=== PATIENT | male | born 1940 | race Caucasian/White ===

== ENCOUNTER → 2016-10-18 | Outpatient (CLI) | payer MEDICARE | END | disposition home or self-care (01) | LOC: LABPAT 10:19 | PROVIDERS: ATTEND Orthopaedic Surgery | DX: Z01.812 Encounter for preprocedural laboratory examination (principal) | CPT/HCPCS: 86850; 86900; 86901; 87070 ==

== ENCOUNTER 2016-10-29 08:46 | Inpatient (IN) | payer MEDICARE ==
--- NOTE | 2016-10-28 12:41 | HP ---
CHIEF COMPLAINT: Right hip pain. HISTORY OF PRESENT ILLNESS: The patient is a 76-year-old male who presents with progressive right hip pain, worsening over the past couple of months. He notes thigh pain and stiffness. He has been limping. He has tried medications with only partial temporary relief. PAST MEDICAL HISTORY: Significant for atrial fibrillation, type 2 diabetes, hypercholesterolemia and prostate cancer. PAST SURGICAL HISTORY: Significant for previous shoulder surgery, previous prostate surgery, bladder surgery with urostomy, colon surgery with colostomy, cholecystectomy. CURRENT MEDICATIONS: Aspirin, atorvastatin, lisinopril, metformin, metoprolol, warfarin. He notes sensitivity to Norflex, however, no yoav drug allergies. FAMILY HISTORY: Significant for heart disease and cancer. SOCIAL HISTORY: Significant for previous tobacco use, however, he quit in 1966. Sixteen point review of systems otherwise reviewed and is noncontributory. On examination the patient is approximately 6 feet tall, 205 pounds, of mesomorphic habitus. HEENT: Nonfocal. NECK: Supple. He is nontender about the lumbar spine. Passive motion of the right hip. Flexion 75 degrees. External rotation of the hip flexed 60 degrees, internal rotation 10 degrees with pain. Clinically he is 0.5 cm short on the right lower extremity compared to the left. He walks with an antalgic gait pattern. He has positive Trendelenburg gait. His distal neurovascular exam appears intact in the right lower extremity. Previous AP and lateral views of the right hip in addition to AP of the pelvis shows severe right hip osteoarthrosis. IMPRESSION: 1. Right hip severe osteoarthrosis. 2. History of prostate cancer with urostomy/colostomy. 3. Atrial fibrillation on chronic anticoagulation. RECOMMENDATIONS: I talked to the patient at length regarding his treatment options. At this point he is quite symptomatic and opts to proceed with surgery. We will plan to proceed with right total hip arthroplasty. Risks and benefits were discussed at length in layman's terms. We will reinstitute his Coumadin therapy postoperatively. The patient underwent preoperative cardiac evaluation by Dr. Hurley. [facility]ENTER[facility]ast[facility]
[~2016-10-29 08:46] MED LIST: ACETAMINOPHEN TAB 500 MG TAB PO ONE; DEXAMETHASONE SOD PHOSPHATE 10 MG/ML 1 ML VIAL IV ONE; HYDROmorphone 1 MG/ML 1 ML SYRINGE IVP PRN; MELOXICAM 7.5 MG TAB PO ONE; MIDAZOLAM 2 MG/2 ML VIAL IV PRN; ONDANSETRON 4 MG/2 ML VIAL IVP ONE; TRANEXAMIC ACID 1,000 MG in SODIUM CHLORIDE 0.9% 100 ML IVPB ONE; ceFAZolin 2 GM in SODIUM CHLORIDE 0.9% 100 ML IVPB ONE
[2016-10-29] MEDS: LACTATED RINGERS 1,000 ML IV SCH (09:35)
[2016-10-29] MEDS ORDERED: LIDOCAINE 1% 20 ML VIAL (10MG/ML) FOR IV START INTRADERMA ONE (09:43)
[2016-10-29 09:47] LABS: Glucose,Whole Blood 86 mg/dL (75-99)
[2016-10-29 10:01] LABS: INR 1.2 (<1.2); Partial Thromboplastin Time 24.9 sec (22.0-30.0); Prothrombin Time 11.7 sec (9.0-12.0)
[2016-10-29] MEDS ORDERED: MIDAZOLAM 2 MG/2 ML VIAL ONE (10:55)
[2016-10-29] MEDS ORDERED: ePHEDrine 50 MG/ML 1 ML AMP ONE (10:55)
[2016-10-29] MEDS ORDERED: SODIUM CHLORIDE 0.9% IRRIG 1,000 ML BTL IRRIGATION ONE (10:55)
[2016-10-29] MEDS ORDERED: HEPARIN SODIUM,PORCINE 10,000 UNIT/ML 1 ML VIAL ONE (10:55)
[2016-10-29] MEDS ORDERED: fentaNYL (PF) 50 MCG/ML 2 ML AMP ONE (10:55)
[2016-10-29] MEDS ORDERED: LACTATED RINGERS 1,000 ML IV ONE (11:50)
[2016-10-29] MEDS ORDERED: HYDROmorphone 1 MG/ML 1 ML SYRINGE IVP PRN ×2 (12:51)
[2016-10-29] MEDS ORDERED: ONDANSETRON 4 MG/2 ML VIAL IVP PRN (12:51)
[2016-10-29] MEDS ORDERED: HYDROcodone/APAP 5-325MG 1 EACH TAB PO PRN (12:51)
[2016-10-29] MEDS ORDERED: NALOXONE 0.4 MG/ML 1 ML VIAL IV PRN ×2 (12:51→13:39)
[2016-10-29] MEDS ORDERED: MAGNESIUM HYDROXIDE 2,400 MG/10 ML CUP PO PRN (12:51)
--- NOTE | 2016-10-29 13:24 | P.OP ---
Date of Procedure: 10/29/16 Preoperative Diagnosis: Severe right hip osteoarthrosis Postoperative Diagnosis: Same Procedure(s) Performed: Right total hip [id number] Implants: Depuy Corail size 12 high offset collared femoral stem, 36 mm +5 cobalt chrome femoral head, 62 mm press-fit acetabular shell with neutral polyethylene liner. Anesthesia: spinal Surgeon: Russel Villanueva Car Distributor #1: Alberto Tobias Estimated Blood Loss (ml): 200 Pathology: other (Femoral head) Condition: stable Disposition: PACU Indications for Procedure: The patient's a 76-year-old male who presents with progressive right hip pain secondary to osteoarthrosis despite conservative measures. He also previously had radiation treatment for prostate cancer with a subsequent urostomy. A discussion of the risks and benefits of operative intervention versus continued conservative measures was made with the patient. He opted to proceed with surgery. Operative risks to include infection, neurovascular injury, development of blood clots, possible component loosening, possible leg length discrepancy, possible dislocation need for subsequent procedures was discussed. Informed consent was obtained. Operative Findings: As below Description of Procedure: The patient was brought to the operating room, and after induction of spinal anesthesia was was placed into lateral decubitus position. The pelvis was stabilized perpendicular to the floor with a pegboard. Bony prominences were appropriately padded. The right lower extremity was prepped and draped in a normal fashion. A 15 cm incision was then made centered over the greater trochanter extending distally in line with the femoral shaft and proximally to level the ASIS. The skin and subcutaneous tissues were divided sharply. Electrocautery was used for hemostasis. The fascia ivonne and gluteus maged fascia was split in line with skin incision. The muscle fibers were bluntly dissected proximally. The anterior and posterior margins of the gluteus medius muscles identified in the anterior two thirds detached from the greater trochanter with electrocautery. The gluteus minimus tendon was identified and detached in a similar fashion. A wide capsulotomy was performed. The hip was gently dislocated. The neck cut was then made at a 45 to the shaft approximately 1-1/2 cm above the level lesser trochanter. The head was then extracted. The acetabulum was inspected. Retractors were placed anterior and posteriorly. The remaining capsular labral tissue was sharply debrided clearly defining the acetabular margins. I began reaming with a 57 mm reamer taking care to initially medialize, then reaming at 45 valgus and 20 of anteversion. Sequential reaming was performed up to 61 mm. A trial to 2 mm acetabular shell was inserted in the same orientation and was fully seated. There was good rim fit and stability. The trial component was then removed. The final component was inserted in 45 of abduction and 20 of anteversion. Again there was good rim fit and stability. I did use an osteotome to remove peripheral osteophytes anterior and posterior along the acetabulum. A neutral polyethylene liner was gently impacted. Care was taken to avoid any soft tissue interposition. Pulsatile lavage was utilized. Attention was then paid towards preparing the proximal femur. A box chisel was used to open the metaphyseal region. A canal finder was used to find the femoral canal. Sequential broaching was performed with the leg perpendicular to the floor in 15 of anteversion. I went up to a size 12 broach. A calcar mill was used to fashion the medial calcar. A high offset neck along with a 36 mm +5 head was placed. The hip was gently reduced. I was able to obtain full flexion and extension with good stability with internal and external rotation. I felt there was adequate yarsanism of soft tissue tension. The hip was gently dislocated. The trial components were then removed. The final femoral stem was inserted in 15 of anteversion with the leg perpendicular to the floor. There was good rotational stability. The 36 mm +5 cobalt chrome femoral head was gently impacted. The hip was gently reduced. Again it was taken through range of motion felt to be stable in flexion and extension with internal and external rotation. Again I felt there was adequate yarsanism of soft tissue tension. Pulsatile lavage was again utilized. With the hip in abduction, the gluteus minimus and medius tendons reattached the greater trochanter with #2 Ethibond suture. The fascia ivonne and gluteus maged fascia was closed with running #2 Ethibond suture. He had minimal drainage is this point, therefore I did not place a deep drain. The subcutaneous tissues reapproximated with interrupted 2-0 Vicryl sutures. The skin was reapproximated with 3-0 subcuticular strata fix suture. Skin tape and adhesive was applied. A sterile dressing was applied. The patient was awoken from sedation and transferred to recovery room in good condition. Blood loss was estimated 200 mL. No complications were incurred. Sponge and needle counts were correct at the end the case.
[2016-10-29] MEDS ORDERED: NALBUPHINE 10 MG/ML AMPUL IV PRN (13:39)
[2016-10-29] MEDS ORDERED: diphenhydrAMINE 50 MG/ML 1 ML VIAL IVP PRN (13:39)
[2016-10-29] MEDS ORDERED: MORPHINE SULFATE 4 MG/ML SYRINGE IVP PRN (13:39)
--- NOTE | 2016-10-29 13:50 | XR ---
Fluoroscopy EXAMINATION TYPE: XR Hip Limited RT DATE OF EXAM: 10/29/2016 COMPARISON: NONE HISTORY: Status post hip replacement TECHNIQUE: Single AP right hip FINDINGS: Right femoral prosthesis is present. No acute fractures are evident. Acetabular component i s present. Surgical clips are within the pelvis. Vascular calcifications present. Postsurgical changes at the ri ght hip is present IMPRESSION: 1. No acute fractures post hip replacement
[2016-10-29 14:48] VITALS: BMI 27.2
[2016-10-29 16:23] LABS: Glucose,Whole Blood 125 mg/dL (75-99)
[2016-10-29] MEDS: traMADol 50 MG TAB PO SCH (17:54)
[2016-10-29] MEDS ORDERED: WARFARIN 2.5 MG TAB PO SCH (18:00)
[2016-10-29] MEDS ORDERED: traMADol 50 MG TAB PO SCH (18:00)
[2016-10-29] MEDS: ceFAZolin 2 GM in SODIUM CHLORIDE 0.9% 100 ML IVPB SCH (18:07)
[2016-10-29] MEDS: LISINOPRIL 5 MG TAB PO SCH (19:59)
[2016-10-29] MEDS: metFORMIN 500 MG TAB PO SCH (19:59)
[2016-10-29] MEDS: SENNOSIDES-DOCUSATE SODIUM 1 EACH TAB PO SCH (19:59)
[2016-10-29] MEDS: PROPAFENONE 150 MG TAB PO SCH (19:59)
[2016-10-29] MEDS: ATORVASTATIN 40 MG TAB PO SCH (19:59)
[2016-10-29 20:24] LABS: Glucose,Whole Blood 239 mg/dL (75-99)
[2016-10-29] MEDS: INSULIN LISPRO (humaLOG) 300 UNIT/3 ML VIAL SQ SCH (21:11)
[2016-10-30] MEDS: traMADol 50 MG TAB PO SCH ×5 (01:45→23:51)
[2016-10-30] MEDS: ceFAZolin 2 GM in SODIUM CHLORIDE 0.9% 100 ML IVPB SCH (03:12)
[2016-10-30] MEDS: LACTATED RINGERS 1,000 ML IV SCH (05:53)
[2016-10-30 07:19] LABS: Glucose,Whole Blood 125 mg/dL (75-99)
[2016-10-30] MEDS: INSULIN LISPRO (humaLOG) 300 UNIT/3 ML VIAL SQ SCH ×4 (07:47→21:08)
[2016-10-30 07:59] LABS: INR 1.2 (<1.2); Prothrombin Time 11.5 sec (9.0-12.0)
[2016-10-30 08:00] LABS: Basophils % (A) 0 %; CH 30.4; CHCM 32.1; Eosinophils % (A) 0 %; HCT 33.4 % (39.0-53.0); HDW 2.35; HGB 10.7 gm/dL (13.0-17.5); Luc # (Auto) 0.13; Luc % (Auto) 1; Lymphocytes # (A) 0.9 k/uL (1.0-4.8); Lymphocytes % (A) 9 %; MCH 30.4 pg (25.0-35.0); MCHC 31.9 g/dL (31.0-37.0); MCV 95.3 fL (80.0-100.0); Mean Platelet Volume 7.7; Monocytes # (A) 0.7 k/uL (0-1.0); Monocytes % (A) 7 %; Neutrophils # (A) 8.5 k/uL (1.3-7.7); Neutrophils % (A) 82 %; RBC 3.51 m/uL (4.30-5.90); RDW 13.3 % (11.5-15.5); WBC 10.3 k/uL (3.8-10.6); WBC (Perox) 11.11
--- NOTE | 2016-10-30 08:01 | CONS ---
DATE OF CONSULTATION: 10/29/16 REASON FOR CONSULTATION: Medical management requested by Dr. Villanueva. CONSULTATION: This is a very pleasant 76-year-old patient who has undergone a right total hip arthroplasty. Post-surgery patient has walked around the bed. No chest pain, short of breath, nausea or vomiting. Chronic stable medical condition includes atrial fibrillation, coronary artery disease, diabetes, hyperlipidemia, chronic kidney disease. Patient has a colostomy and a urostomy following metastatic prostatic cancer surgery. is at the bedside. Pain is controlled. REVIEW OF SYSTEMS: CONSTITUTIONAL: None. HEENT: None. RESPIRATORY: None. CARDIOVASCULAR: None. GASTROINTESTINAL: As above. GENITOURINARY: None. MUSCULOSKELETAL: Pain in the joints. DERMATOLOGICAL: None. HEMATOLOGY: None. LYMPHATIC: None. PSYCHIATRY: None. NEUROLOGICAL: None. Past history of atrial fibrillation, coronary artery disease, diabetes, hyperlipidemia, chronic kidney disease stage II, prostate cancer. PAST SURGICAL HISTORY: Bladder surgery, bowel resection, cholecystectomy, coronary artery bypass, prostate surgery, left knee arthroscopy, colostomy, urostomy 12 years ago. SOCIAL HISTORY: Patient smoked for 4 years, way back. Does not drink alcohol. 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 Family history of cancer, type unknown. HOME MEDICATIONS: 1. Glucophage 500 mg p.o. b.i.d. 2. Coumadin 2.5 mg Friday, Friday, and 5 mg on Friday and Friday. 3. Rythmol 150 mg p.o. b.i.d. 4. Metoprolol 25 mg in the morning. 5. Zestril 5 mg p.o. q.h.s. 6. [place] 5 one tablet q.6 p.r.n. 7. Fenofibrate 160 mg p.o. daily. 8. Cranberry 200 mg p.o. daily. 9. Vitamin D3 two thousand units p.o. daily. 10. Lipitor 40 mg q.h.s. 11. Aspirin 162.5 p.o. daily. Allergies to NORFLEX. On examination, temperature 96.9, pulse 58, respirations 16, blood pressure 104/ 57, pulse ox 96% on room air. GENERAL APPEARANCE: Average build, sitting up on the edge of the bed comfortable. EYES: Pupils equal, conjunctivae normal. HEENT: Oral cavity normal. NECK: JVD not raised, mass not palpable. Respiratory effort normal. Lungs are clear. CARDIOVASCULAR: First and second sounds, no edema. ABDOMEN: Soft, nontender. Liver and spleen not palpable. LYMPHATICS: No lymph node palpable in neck or axillae. PSYCHIATRY: Alert and oriented x3 Mood and affect normal. NEUROLOGICAL: Pupils are equal, grossly intact. Power and sensation grossly intact. MUSCULOSKELETAL: Evidence of osteoarthritis, especially in the hands and knees. Right hip dressing was replaced. INVESTIGATIONS: Accu-Checks, 86, 125. ASSESSMENT: 1. Right total hip arthroplasty. 2. History of atrial fibrillation. 3. Coronary artery disease with prior history of bypass. 4. Diabetes mellitus type 2 on oral hypoglycemia. 5. Hyperlipidemia. 6. History of colostomy and urostomy from prostate cancer. PLAN: Home medications will be resumed. Will resume patient's Coumadin, will follow care with Dr. Villanueva. Care was discussed with the patient and the . Pain is controlled. Thank you, Dr. Villanueva. [facility]
[2016-10-30] MEDS: FENOFIBRATE 160 MG TAB PO SCH (08:17)
[2016-10-30] MEDS: PROPAFENONE 150 MG TAB PO SCH ×2 (08:17→21:07)
[2016-10-30] MEDS: metFORMIN 500 MG TAB PO SCH ×2 (08:17→21:07)
[2016-10-30] MEDS: FAMOTIDINE 20 MG TAB PO SCH (08:18)
[2016-10-30] MEDS: METOPROLOL TARTRATE 25 MG TAB PO SCH (08:18)
--- NOTE | 2016-10-30 10:27 | P.PN ---
Progress Note - Text Postop day 1 from right hip arthroplasty under spinal anesthesia with intrathecal morphine given for postop pain management. Patient is doing well. Pain is well controlled. On visual analog scale 4/10 No itching present No nausea or vomiting reported. No Headache or weakness and numbness in the legs. No complications from spinal anesthesia.
--- NOTE | 2016-10-30 11:26 | P.PN ---
Subjective Principal diagnosis: Status post right total hip arthroplasty Patient seen today resting in his hospital chair, he appears comfortable. He is ambulating well with PT. He denies any chest pain, shortness of breath, fever or chills, abdominal discomfort. Objective - Vital Signs Vital signs: Vital Signs Temp 98.0 F 10/30/16 07:00 Pulse 96 10/30/16 07:00 Resp 16 10/30/16 07:00 BP 106/59 10/30/16 07:00 Pulse Ox 97 10/30/16 07:00 Intake & Output 10/29/16 10/30/16 10/30/16 18:59 06:59 18:59 Intake Total 2230 980 350 Output Total 475 1000 Balance 1755 -20 350 Weight 91.172 kg Intake: IV 1750 Intake, IV Titration 500 Amount Lactated Ringers 1,000 ml 400 @ 40 mls/hr IV .Q24H HILDA Rx#:[id number] ceFAZolin 2 gm In Sodium 100 Chloride 0.9% 100 ml @ 100 mls/hr IVPB Q8H HILDA Rx#:[id number] Oral 480 480 350 Output: Urine 275 1000 Estimated Blood Loss 200 Other: Voiding Method Ileal Conduit (Right) Ileal Conduit (Right) - Exam Right lower extremity: Incision is clean, dry, and intact. Minimal soft tissue swelling present. Calf is soft, no tenderness with palpation. Plantar flexion, dorsiflexion, EHL , FHL are intact. Sensory exam to light touch throughout that extremity is intact, dorsal pedis pulses 2+. - Labs CBC & Chem 7: 10/30/16 07:14 Labs: Abnormal Lab Results - Last 24 Hours (Table) 10/29/16 10/29/16 10/30/16 Range/Units 16:08 20:15 07:08 RBC (4.30-5.90) m/uL Hgb (13.0-17.5) gm/dL Hct (39.0-53.0) % Neutrophils # (1.3-7.7) k/uL Lymphocytes # (1.0-4.8) k/uL INR (<1.2) POC Glucose (mg/dL) 125 H 239 H 125 H (75-99) mg/dL 10/30/16 10/30/16 Range/Units 07:11 07:14 RBC 3.51 L (4.30-5.90) m/uL Hgb 10.7 L (13.0-17.5) gm/dL Hct 33.4 L (39.0-53.0) % Neutrophils # 8.5 H (1.3-7.7) k/uL Lymphocytes # 0.9 L (1.0-4.8) k/uL INR 1.2 H (<1.2) POC Glucose (mg/dL) (75-99) mg/dL Assessment and Plan Plan: Assessment: 1. Postop day 1 status post right total hip arthroplasty Plan: 1. Pain control, continue use of oral medication 2. Continue therapy 3. Daily dressing changes 4. Encourage incentive spirometer 5. GI and prophylaxis, continue current medication 6. Medical recommendations 7. Discharge planning: Patient will be likely discharged home tomorrow Time with Patient: Less than 30
--- NOTE | 2016-10-30 11:27 | P.DS ---
Providers Date of admission: 10/29/16 08:46 Expected date of discharge: 10/31/16 Attending physician: Russel Villanueva Consults: 10/29/16 12:56 Consult Physician Routine Consulting Provider: Edgar Veliz Consult Reason/Comments: Medical Management Do you want consulting provider notified?: Yes Primary care physician: Nixon Tavares [facility] Course: Date of admission: 10/29/2016 Date of discharge: 10/31/2016 Admission diagnosis: Status post right total hip arthroplasty Discharge diagnosis: Same Attending physician: Dr. Villanueva Surgical procedures: Right total hip arthroplasty Brief history: Patient is a 76-year-old male with a history of progressive primary right hip osteoarthritis. At this point patient has failed conservative treatment measures and has opted to proceed with a elective right total hip arthroplasty. Hospital course: Details of patient's surgery can be found in operative report. Patient tolerated the procedure well and was subsequently transported to orthopedic floor. Patient's orthopeidc and medical care was provided daily. Patient had daily laboratory tests performed for evaluation of overall blood counts. Patient had daily physical therapy to include strengthening range of motion as well as education with walker ambulation. Patient was treated with Coumadin for their postoperative DVT prophylaxis during their inpatient stay. Patient was noted to have a relatively uneventful postoperative course. Patient reported satisfactory pain control with oral pain medications by postoperative day 0. Patient showed satisfactory progress with physical therapy. Patient moved steadily through the program and had no difficulty meeting the goals by postoperative day 2. Given patient's otherwise satisfactory course and having met physical therapy goals, plan is to discharge patient home on postoperative day 2. Discharge condition/disposition: Patient will be discharged home in stable condition. Discharge medications: Instructions are given on resumption of patient's normal daily medications per primary care recommendation, in addition patient will be prescribed [place] 5 mg/325 mg, tramadol 50 mg, Colace 100 mg. Discharge instructions: 1. Wound care and infection precautions, keep incision dry and covered while showering, no lotions, creams, moisturizers. No soaking, tubs, pools, hottubs. Do not scrub over the incision. 2. Weight-bear as tolerated with walker / cane until follow-up. 3. Ice and elevate when necessary. Do not exceed 20 minutes per hour with ice pack. 4. Utilize compression sleeve until seen at first follow up appointment. 5. Visiting nursing care. 6. Home physical therapy. 7. Pain meds and anticoagulants per prescription. 8. Pain medication has potential to cause constipation. Increase oral fluid and fiber intake. Contact primary care provider if you have not had a bowel movement within 48 hours after discharge 9. No anti-inflammatory medication until discussed at first post operative visit, this including Motrin, Aleve, Mobic, Diclofenac. 10. Follow up in office at 2 weeks postop with Augie Tobias PA-C 11. Follow up with your primary care doctor 7-10 days after discharge. 12. Contact [facility] with any questions, . Procedures: Right total hip arthroplasty Patient Condition at Discharge: Good Plan - Discharge Summary New Discharge Prescriptions: New Docusate [Colace] 100 mg PO DAILY #30 capsule Hydrocodone/Acetaminophen [[place] 5-325] 1 - 2 each PO Q6HR PRN #60 tab PRN Reason: Pain traMADol HCl [Ultram] 50 mg PO Q6H PRN #40 tab PRN Reason: Pain No Action Warfarin [Coumadin] 5 mg PO MOFR metFORMIN HCL [Glucophage] 500 mg PO BID Propafenone [Rythmol] 150 mg PO BID Metoprolol Tartrate 25 mg PO QAM Lisinopril [Zestril] 5 mg PO HS Fenofibrate 160 mg PO QAM Atorvastatin [Lipitor] 40 mg PO HS Aspirin 162.5 mg PO DAILY Warfarin [Coumadin] 2.5 mg PO SUTUWETHSA Cranberry Fruit Extract [Cranberry] 200 mg PO DAILY Cholecalciferol (Vitamin D3) [Vitamin D3] 2,000 unit PO DAILY Discharge Medication List Aspirin 162.5 mg PO DAILY 02/20/16 [History] Atorvastatin [Lipitor] 40 mg PO HS 02/20/16 [History] Fenofibrate 160 mg PO QAM 02/20/16 [History] Lisinopril [Zestril] 5 mg PO HS 02/20/16 [History] Metoprolol Tartrate 25 mg PO QAM 02/20/16 [History] Propafenone [Rythmol] 150 mg PO BID 02/20/16 [History] Warfarin [Coumadin] 5 mg PO MOFR 02/20/16 [History] metFORMIN HCL [Glucophage] 500 mg PO BID 02/20/16 [History] Warfarin [Coumadin] 2.5 mg PO SUTUWETHSA 10/22/16 [History] Cholecalciferol (Vitamin D3) [Vitamin D3] 2,000 unit PO DAILY 10/23/16 [History] Cranberry Fruit Extract [Cranberry] 200 mg PO DAILY 10/23/16 [History] Docusate [Colace] 100 mg PO DAILY #30 capsule 10/31/16 [Rx] Hydrocodone/Acetaminophen [[place] 5-325] 1 - 2 each PO Q6HR PRN #60 tab 10/31/16 [Rx] traMADol HCl [Ultram] 50 mg PO Q6H PRN #40 tab 10/31/16 [Rx] Follow up Appointment(s)/Referral(s): Russel Villanueva MD [STAFF PHYSICIAN] - 2 Weeks Activity/Diet/Wound Care/Special Instructions: Orthopedic Discharge Instructions: 1. Wound care and infection precautions, keep incision dry and covered while showering, no lotions, creams, moisturizers. No soaking, pools, hot tubs. Do not scrub over incision. 2. Weight-bear as tolerated with walker / cane until follow-up. 3. Ice and elevate when necessary. Do not exceed 20 minutes per hour with ice pack. 4. Utilize compression sleeve until seen at first follow up appointment. 5. Visiting nursing care. 6. Home physical therapy. 7. Pain meds and anticoagulants per prescription. 8. Pain medication has potential to cause constipation. Increase oral fluid and fiber intake. Contact primary care provider if you have not had a bowel movement within 48 hours after discharge. 9. No anti-inflammatory medication until discussed at first post operative visit, this including Motrin, Aleve, Mobic, Diclofenac. 10. Follow up in office at 2 weeks postop with Augie Tobias PA-C 11. Follow up with your primary care doctor 7-10 days after discharge. 12. Contact [facility] with any questions, . [facility]: [phone] Discharge Disposition: HOME WITH HOME HEALTH SERVICES
[2016-10-30] MEDS: WARFARIN 2.5 MG TAB PO SCH (11:49)
[2016-10-30 11:54] LABS: Glucose,Whole Blood 111 mg/dL (75-99)
--- NOTE | 2016-10-30 13:05 | PN ---
DATE OF SERVICE: 10/30/16 PRESENTING COMPLAINT: Right total hip arthroplasty. INTERVAL HISTORY: The patient is status post right hip surgery, sitting up, no nausea or vomiting. Pain is controlled. Tolerating a diet. Did work with physical therapy. Review of systems done for constitutional, cardiovascular, GI, pulmonary, relevant findings as above. Current medications are reviewed. On examination, temperature 98, pulse 96. Respirations 16. Blood pressure 106/ 59. Pulse ox 97% on room air. General appearance sitting up in bed, comfortable. Eyes: Pupils equal, conjunctivae normal. Neck JVD not raised. Mass not palpable. Respiratory effort normal. Lungs clear. Cardiovascular: First and second sounds normal. No edema. Abdomen soft, nontender. Colostomy and urostomy bag in place, attached to a bag. Psychiatric: Alert and oriented times three. Mood and affect normal. Musculoskeletal: Dressing over the right hip looks good. Investigations: White count 10.3. Hemoglobin 10.7. Potassium ( ). ASSESSMENT: 1. Right total hip arthroplasty. 2. History of atrial fibrillation. 3. Coronary artery disease with prior history of bypass. 4. Diabetes mellitus Type 2, on oral hypoglycemic. 5. Hyperlipidemia. 6. Colostomy and urostomy from prostate cancer. PLAN: Continue current medication and treatment plan. Coumadin to be resumed when okay with Dr. Villanueva. Care was discussed with the patient. KEV
[2016-10-30 17:36] LABS: Glucose,Whole Blood 109 mg/dL (75-99)
[2016-10-30] MEDS: HYDROcodone/APAP 5-325MG 1 EACH TAB PO PRN (17:44)
[2016-10-30] MEDS ORDERED: WARFARIN 2.5 MG TAB PO SCH (18:00)
[2016-10-30 20:12] LABS: Glucose,Whole Blood 134 mg/dL (75-99)
[2016-10-30] MEDS: SENNOSIDES-DOCUSATE SODIUM 1 EACH TAB PO SCH (21:08)
[2016-10-30] MEDS: ATORVASTATIN 40 MG TAB PO SCH (21:08)
[2016-10-30] MEDS: LISINOPRIL 5 MG TAB PO SCH (21:08)
[2016-10-31] MEDS: HYDROcodone/APAP 5-325MG 1 EACH TAB PO PRN ×2 (06:37→10:58)
[2016-10-31 07:26] LABS: Glucose,Whole Blood 102 mg/dL (75-99)
[2016-10-31 07:57] LABS: INR 1.1 (<1.2); Prothrombin Time 11.4 sec (9.0-12.0)
--- NOTE | 2016-10-31 08:43 | P.PN ---
Subjective Principal diagnosis: Status post right total hip arthroplasty Patient seen today resting in his hospital chair, he appears comfortable. He is ambulating well with PT. He denies any chest pain, shortness of breath, fever or chills, abdominal discomfort. Objective - Vital Signs Vital signs: Vital Signs Temp 97.4 F L 10/31/16 00:39 Pulse 78 10/31/16 00:39 Resp 16 10/31/16 00:39 BP 125/69 10/31/16 00:39 Pulse Ox 95 10/31/16 00:39 Intake & Output 10/30/16 10/31/16 10/31/16 18:59 06:59 18:59 Intake Total 550 2120 Output Total 1600 1000 Balance -1050 1120 Weight 91.172 kg Intake: Intake, IV Titration 200 Amount Lactated Ringers 1,000 ml 200 @ 40 mls/hr IV .Q24H HILDA Rx#:[id number] Oral 350 2120 Output: Urine 1600 1000 Other: Voiding Method Ileal Conduit (Right) Ileal Conduit (Right) - Exam Right lower extremity: Incision is clean, dry, and intact. Minimal soft tissue swelling present. Calf is soft, no tenderness with palpation. Plantar flexion, dorsiflexion, EHL , FHL are intact. Sensory exam to light touch throughout that extremity is intact, dorsal pedis pulses 2+. - Labs CBC & Chem 7: 10/30/16 07:14 Labs: Abnormal Lab Results - Last 24 Hours (Table) 10/30/16 10/30/16 10/30/16 Range/Units 11:47 17:35 20:08 POC Glucose (mg/dL) 111 H 109 H 134 H (75-99) mg/dL 10/31/16 Range/Units 07:10 POC Glucose (mg/dL) 102 H (75-99) mg/dL Assessment and Plan Plan: Assessment: 1. Postop day #2 status post right total hip arthroplasty Plan: 1. Pain control, continue use of oral medication 2. Continue therapy 3. Daily dressing changes 4. Encourage incentive spirometer 5. GI and prophylaxis, continue current medication 6. Medical recommendations 7. Discharge planning: Patient will be discharged home today Time with Patient: Less than 30
[2016-10-31] MEDS: INSULIN LISPRO (humaLOG) 300 UNIT/3 ML VIAL SQ SCH (09:11)
[2016-10-31 09:14] VITALS: BP 102/56; RESP 18; TEMP 97.7
[2016-10-31] MEDS: FENOFIBRATE 160 MG TAB PO SCH (09:15)
[2016-10-31] MEDS: metFORMIN 500 MG TAB PO SCH (09:15)
[2016-10-31] MEDS: PROPAFENONE 150 MG TAB PO SCH (09:15)
[2016-10-31] MEDS: FAMOTIDINE 20 MG TAB PO SCH (09:15)
[2016-10-31] MEDS: METOPROLOL TARTRATE 25 MG TAB PO SCH (09:16)
[2016-10-31] MEDS: traMADol 50 MG TAB PO SCH (09:17)
[2016-10-31] MEDS: WARFARIN 2.5 MG TAB PO SCH (11:00)
[2016-10-31 11:50] VITALS: PULSE 78
[2016-10-31 11:56] LABS: Glucose,Whole Blood 114 mg/dL (75-99)
--- NOTE | 2016-10-31 14:02 | PN ---
DATE OF SERVICE: 10/31/2016 PRESENTING COMPLAINT: Right total hip arthroplasty. INTERVAL HISTORY: Patient's pain is well-controlled, up and about, tolerating a diet. No nausea, vomiting, no dizziness. No chest pain. Review of systems done for constitutional, cardiovascular, GI, pulmonary; relevant findings as above. Current medications are reviewed. On examination, temperature 97.7, pulse 84, respirations 18, temperature 97.7, blood pressure 102/56, pulse 96% on room air. GENERAL APPEARANCE: Sitting up on chair, comfortable. EYES: Pupils equal, conjunctivae normal. NECK: JVD not raised mass not palpable. RESPIRATORY: Effort normal. Lung are clear. CARDIOVASCULAR; First and second sounds normal, no edema. ABDOMEN: Soft, nontender, colostomy and urostomy bag in place. PSYCHIATRY: Alert and oriented x3. Mood and affect normal. MUSCULOSKELETAL: Right hip looks good. INVESTIGATIONS: Accu-Cheks are noted. ASSESSMENT: 1. Right total hip arthroplasty. 2. History of atrial fibrillation. 3. Coronary artery with prior history of bypass coronary. 4. Diabetes mellitus type 2, on oral hypoglycemic. 5. Hyperlipidemia. 6. Colostomy and urostomy from prostate cancer surgery. PLAN: Patient doing well. Care was discussed with them. If discharged, will follow up with the family doctor. Thank you, Dr. Villanueva. KEV
[2016-11-01] MEDS ORDERED: WARFARIN 5 MG TAB PO SCH ×2 (18:00)
== END 2016-10-31 14:59 | disposition home health service (06) | DRG 470 ==
LOC: 2ORMAIN 08:46 → 3SUR 13:10
PROVIDERS: ADMIT Orthopaedic Surgery; ATTEND Orthopaedic Surgery
PROC: 0SR902A Replacement of Right Hip Joint with Metal on Polyethylene Synthetic Substitute, Uncemented, Open Approach (ICD-10-PCS; principal; 2016-10-29 10:40)
DX: M16.11 Unilateral primary osteoarthritis, right hip (principal); Q60.0 Renal agenesis, unilateral; E11.22 Type 2 diabetes mellitus with diabetic chronic kidney disease; I48.0 Paroxysmal atrial fibrillation; I25.10 Atherosclerotic heart disease of native coronary artery without angina pectoris; I12.9 Hypertensive chronic kidney disease with stage 1 through stage 4 chronic kidney disease, or unspecified chronic kidney disease; N18.3 Chronic kidney disease, stage 3 (moderate); E78.2 Mixed hyperlipidemia; E55.9 Vitamin D deficiency, unspecified; R01.1 Cardiac murmur, unspecified; Z79.01 Long term (current) use of anticoagulants; Z79.84 Long term (current) use of oral hypoglycemic drugs; Z79.899 Other long term (current) drug therapy; Z79.82 Long term (current) use of aspirin; Z85.46 Personal history of malignant neoplasm of prostate; Z87.891 Personal history of nicotine dependence; Z93.3 Colostomy status; Z95.1 Presence of aortocoronary bypass graft; Z85.828 Personal history of other malignant neoplasm of skin
CPT/HCPCS: 73501; 85025; 85610; 85730; 86850; 86891; 86900; 86901; 88305; 88311

== ENCOUNTER → 2019-08-11 | Outpatient (CLI) | payer MEDICARE ==
[2019-08-11 11:08] LABS: Basophils % (A) 0 %; Eosinophils # (A) 0.2 k/uL (0-0.7); Eosinophils % (A) 2 %; HCT 35.2 % (39.0-53.0); HGB 10.6 gm/dL (13.0-17.5); Hypochromasia Marked; Lymphocytes # (A) 1.3 k/uL (1.0-4.8); Lymphocytes % (A) 12 %; MCH 27.2 pg (25.0-35.0); MCHC 30.1 g/dL (31.0-37.0); MCV 90.3 fL (80.0-100.0); Mean Platelet Volume 7.3; Monocytes # (A) 1.1 k/uL (0-1.0); Monocytes % (A) 10 %; Neutrophils # (A) 8.3 k/uL (1.3-7.7); Neutrophils % (A) 75 %; Platelet Count 413 k/uL (150-450); RDW 14.4 % (11.5-15.5); WBC 11.1 k/uL (3.8-10.6)
[2019-08-11 16:15] LABS: African American GFR (CKD) 26.4 (60.0-200.0); Albumin 4.1 g/dL (3.80-4.90); Albumin/Globulin Ratio 1.64 (1.60-3.17); Anion Gap 9.4 mmol/L (4.00-12.00); BUN/Creat Ratio 16.54 Ratio (12.00-20.00); Calcium 9.6 mg/dL (8.7-10.3); Carbon Dioxide 18.6 mmol/L (21.6-31.8); Globulin 2.5 g/dL (1.6-3.3); Non-African American GFR(CKD) 22.8 (60.0-200.0); Potassium 5.4 mmol/L (3.5-5.5); Total Bilirubin 0.4 mg/dL (0.2-1.2); Total Protein 6.6 g/dL (6.2-8.2)
== END | disposition home or self-care (01) ==
LOC: LABWHC1 10:16
PROVIDERS: ATTEND Internal Medicine Cardiovascular Disease
DX: R06.02 Shortness of breath (principal)
CPT/HCPCS: 36415; 80053; 83880; 85025

== ENCOUNTER → 2023-12-29 | Outpatient (CLI) | payer MEDICARE | END | disposition home or self-care (01) | LOC: LABPAT 11:36 | PROVIDERS: ATTEND Orthopaedic Surgery | DX: Z01.818 Encounter for other preprocedural examination | CPT/HCPCS: 87070 ==

== ENCOUNTER 2024-02-10 05:35 | Day surgery (SDC) | payer MEDICARE ==
[2024-02-05 09:03] VITALS: BMI 29.9
--- NOTE | 2024-02-09 09:36 | P.HPOR ---
History of Present Illness H&P Date: 02/09/24 Chief Complaint: Left knee pain The shunt is an 84-year-old retired male who presents with progressive left knee pain for the past several years. He's having pain with weightbearing activities. He notes intermittent giving way. He's tried previous medications along with injections without much relief. He notes daily pain that limits his normal function and activities. Review of Systems Per HPI Past Medical History Past Medical History: Atrial Fibrillation, Coronary Artery Disease (CAD), Cancer, Diabetes Mellitus, Hyperlipidemia, Hypertension, Osteoarthritis (OA), Renal Disease Additional Past Medical History / Comment(s): Recent basal cell carcinoma removed from left arm, stitches removed 02/05/24. Hx prostate cancer Dec 1997, had cryosurgery, had second cryosurgery due to cancer reoccurrence, then had prostatectomy May 2000. Hx skin cancer. Hx follicular lymphoma/tumor 2020, had chemo, completed Dec 2020. Chronic renal failure, stage 4, only one kidney functions normally, no dialysis. Has colostomy and urostomy. History of Any Multi-Drug Resistant Organisms: None Reported Past Surgical History: Bladder Surgery, Bowel Resection, Cholecystectomy, Coronary Bypass/CABG, Joint Replacement, Orthopedic Surgery, Prostate Surgery Additional Past Surgical History / Comment(s): Left knee arthroscopy, colostomy and urostomy 2004 at [facility] due to complications from prostatectomy, left shoulder and left wrist surgery, 5 vessel bypass, right hip replacement, bilateral cataract surgery, colonoscopies, polypectomies and tumor removed. Past Anesthesia/Blood Transfusion Reactions: No Reported Reaction Smoking Status: Former smoker - Past Family History Mother Family Medical History: Cancer Additional Family Medical History / Comment(s): Breast cancer. Brother(s) Family Medical History: Cancer Additional Family Medical History / Comment(s): Prostate cancer. Medications and Allergies Home Medications Medication Instructions Recorded Confirmed Type Atorvastatin [Lipitor] 40 mg PO HS 02/20/16 02/05/24 History Metoprolol Tartrate 12.5 mg PO QAM 02/20/16 02/05/24 History Propafenone [Rythmol] 150 mg PO TID 02/20/16 02/05/24 History Warfarin [Coumadin] 2.5 mg PO SUTUTH 10/22/16 02/05/24 History Empagliflozin [Jardiance] 10 mg PO DAILY 02/05/24 02/05/24 History Fenofibrate 54 mg PO TID 02/05/24 02/05/24 History Multivitamins, Thera [Multivitamin 1 tab PO DAILY 02/05/24 02/05/24 History (formulary)] Warfarin [Coumadin] 3.75 mg PO SUMOWEFR 02/05/24 02/05/24 History Allergies Allergy/AdvReac Type Severity Reaction Status Date / Time orphenadrine [From Norflex] Allergy blurry Verified 02/05/24 08:37 vision Physical Examination - Knee left Appearance: effusion Effusion grade: grade 2 Varus alignment in stance: 10 degrees Tenderness with palpation: anterior, medial Pain: throughout ROM Gait: limping ROM: extension: -10 degrees ROM: flexion: 110 degrees Crepitus with motion: Yes Strength: extension: 5/5 Strength: flexion: 5/5 Meniscal tests: medial meniscal tests: positive, medial joint line pain: positive Results The patient is a well-developed well-nourished male approximately 6 foot tall, 192 pounds of mesomorphic habits. HEENT exam is nonfocal, neck is supple. He has painless passive motion of his left hip. Straight leg raise is negative. He is tender about the medial joint line of the left knee. Collaterals are stable, Sisi was negative, May's is equivocal. He has an antalgic gait pattern. He has genu varum alignment. His distal neurovascular exam appears intact in the left lower extremity. - Diagnostic results Knee x-ray: image reviewed (X-rays of the left knee obtained the office show severe medial compartment osteoarthrosis with [id number] changes and subchondral sclerosis.) Assessment and Plan Assessment: Left knee severe medial and patellofemoral compartment osteoarthrosis Renal disease Atrial fibrillation Plan: I talked with the patient at length regarding his condition along treatment options. At this point he is quite symptomatic having pain and mechanical symptoms related to his left knee osteoarthrosis despite conservative measures. After a thorough discussion he opts to proceed with surgery. We'll plan to proceed with left total knee arthroplasty. Risks and benefits were discussed at length in layman's terms. We will reinstitute his Coumadin therapy postoperatively.
[~2024-02-10 05:35] MED LIST changes: -ACETAMINOPHEN TAB 500 MG TAB PO ONE; -DEXAMETHASONE SOD PHOSPHATE 10 MG/ML 1 ML VIAL IV ONE; -HYDROmorphone 1 MG/ML 1 ML SYRINGE IVP PRN; -MELOXICAM 7.5 MG TAB PO ONE; -MIDAZOLAM 2 MG/2 ML VIAL IV PRN; -ONDANSETRON 4 MG/2 ML VIAL IVP ONE; +TRANEXAMIC 1,000 MG/100ML-NACL 1,000 MG in SALINE 1 100ML.BAG IVPB PRN; -TRANEXAMIC ACID 1,000 MG in SODIUM CHLORIDE 0.9% 100 ML IVPB ONE; -ceFAZolin 2 GM in SODIUM CHLORIDE 0.9% 100 ML IVPB ONE
[2024-02-10] MEDS: IV FLUID CONTINUATION 1,000 ML IV ONE ×2 (05:59→06:31)
[2024-02-10 06:24] LABS: Glucose,Whole Blood 128 mg/dL (70-110)
[2024-02-10] MEDS: MIDAZOLAM 2 MG/2 ML VIAL IV PRN (06:39)
[2024-02-10 06:42] LABS: INR 1.1 (<1.2); Prothrombin Time 11.9 sec (10.0-12.5)
[2024-02-10] MEDS: DEXAMETHASONE SOD PHOSPHATE 4 MG/ML 1 ML VIAL IV ONE (06:48)
[2024-02-10] MEDS: ONDANSETRON 4 MG/2 ML VIAL IVP ONE (06:48)
[2024-02-10] MEDS: MELOXICAM 7.5 MG TAB PO PRN (06:48)
[2024-02-10] MEDS: ACETAMINOPHEN TAB 500 MG TAB PO PRN (06:49)
[2024-02-10] MEDS: LACTATED RINGERS 1,000 ML IV SCH (06:51)
[2024-02-10] MEDS: SODIUM CHLORIDE 0.9% 1,000 ML IV SCH (06:56)
[2024-02-10] MEDS ORDERED: HYDROmorphone 0.5 MG/0.5 ML SYRINGE IVP PRN ×3 (07:00→09:21)
--- NOTE | 2024-02-10 07:22 | P.ANPRN ---
Procedure Note - Anesthesia - Nerve Block Performed Left Nateck Single Time Out Performed: Yes Date of Procedure: 02/10/24 Procedure Start Time: 06:38 Procedure Stop Time: 06:42 Location of Patient: PreOp Indication: Acute Post-Operative Pain, Analgesia, Requested by Surgeon Sedation Type: Sedate with meaningful contact maintained Preparation: Sterile Prep Position: Right Lateral Catheter: None Needle Types: Pajunk Needle Gauge: 21 Ultrasound used to visualize needle placement: Yes Ultrasound used to observe medication spread: Yes Injectate: 0.5% Ropivacaine (see comment for volume) ([id number]) Blood Aspirated: No Pain Paresthesia on Injection Noted: No Resistance on Injection: Normal Image Stored and Saved: Yes Events: Uneventful and Well Tolerated
--- NOTE | 2024-02-10 07:23 | P.ANPRN ---
Procedure Note - Anesthesia - Nerve Block Performed Left Adductor Canal Infusion Time Out Performed: Yes Date of Procedure: 02/10/24 Procedure Start Time: 06:42 Procedure Stop Time: 06:47 Location of Patient: PreOp Indication: Acute Post-Operative Pain, Analgesia, Requested by Surgeon Sedation Type: Sedate with meaningful contact maintained Preparation: Sterile Prep Position: Supine Catheter: Indwelling Needle Types: On-Q Ultrasound used to visualize needle placement: Yes Ultrasound used to observe medication spread: Yes Injectate: 0.5% Ropivacaine (see comment for volume) ([id number]) Blood Aspirated: No Pain Paresthesia on Injection Noted: No Resistance on Injection: Normal Image Stored and Saved: Yes Events: Uneventful and Well Tolerated
[2024-02-10] MEDS ORDERED: fentaNYL (PF) 50 MCG/ML 2 ML AMP ONE (07:36)
[2024-02-10] MEDS ORDERED: ePHEDrine 50 MG/ML 1 ML VIAL ONE (07:36)
[2024-02-10] MEDS ORDERED: ROPIVACAINE 5 MG/ML 30 ML VIAL ONE (07:36)
[2024-02-10] MEDS ORDERED: TRANEXAMIC 1,000 MG/100ML-NACL PREMIX BAG ONE (07:36)
[2024-02-10] MEDS ORDERED: DEXAMETHASONE SOD PHOSPHATE 4 MG/ML 1 ML VIAL ONE (07:36)
[2024-02-10] MEDS ORDERED: PROPOFOL 10 MG/ML 20 ML VIAL IV ONE (07:36)
[2024-02-10] MEDS: ceFAZolin 1,000 MG in SODIUM CHLORIDE 0.9% 1,000 ML IRRIGATION ONE (08:12)
[2024-02-10] MEDS: LACTATED RINGERS 1,000 ML IV ONE (08:50)
[2024-02-10] MEDS ORDERED: NALOXONE 0.4 MG/ML 1 ML VIAL IV PRN (09:21)
[2024-02-10] MEDS ORDERED: MAGNESIUM HYDROXIDE 2,400 MG/30 ML CUP PO PRN (09:21)
[2024-02-10] MEDS ORDERED: ONDANSETRON 4 MG/2 ML VIAL IVP PRN (09:21)
--- NOTE | 2024-02-10 09:46 | P.OP ---
Date of Procedure: 02/10/24 Preoperative Diagnosis: Left knee severe tricompartmental osteoarthrosis Postoperative Diagnosis: Same Procedure(s) Performed: Left total knee arthroplastycementedcruciate retaining Implants: DePuy attune size 9 cemented femoral component, size 8 cemented tibial component, 9 mm articular surface, 41 mm cemented patellar component. This is a cruciate retaining implant. Anesthesia: GETA, spinal Surgeon: Russel Villanueva Wool Hat Hydraulicker #1: Eliazar Raman Estimated Blood Loss (ml): 50 Pathology: none sent Condition: stable Disposition: PACU Indications for Procedure: The patient is an 84-year-old male who presents with progressive left knee pain secondary to osteoarthrosis despite conservative measures. A discussion of the risks and benefits of operative intervention versus continued conservative measures was made with the patient. He opted to proceed with surgery. Operative risks include infection, neurovascular injury, development of blood clots, fracture, possible component loosening/failure and possible need for subsequent procedures was discussed. Informed consent was obtained. Operative Findings: As below Description of Procedure: The patient was brought to the operating room, and after induction of spinal anesthesia the left lower extremity was prepped and draped in a normal fashion. The tourniquet was inflated to 270 mmHg. A longitudinal incision extending 3 finger breaths above the superior pole of the patella extending to the medial aspect the tibial tubercle was then made. The skin and subcutaneous tissues were divided sharply. Electrocautery was used for hemostasis. A medial parapatellar arthrotomy was then performed. The medial soft tissues to include the superficial and deep portions of the medial collateral ligament as well as the medial hamstring tendons were elevated subperiosteally. The proximal medial tibia osteophytes were carefully removed. The patella was everted. The knee was flexed. A portion of the retropatellar fat pad was excised sharply. The anterior cruciate ligament was sacrificed. A starting hole was made in the distal femur 1 cm anterior to the posterior cruciate origin. An intramedullary femoral guide was gently inserted planning on 5 valgus distal cut with 9 mm distal resection. The cutting block was pinned in place. The distal cut was then made. The posterior referencing sizing guide was utilized. 3 of external rotation was built into the system and verified off the trans- epicondylar axis and the posterior condyles. I felt size 9 was most appropriate. The cutting block was pinned in place. The anterior, posterior, and chamfer cuts were then made. The bone fragments were removed. A sulcus cut was then made with the appropriate guide. The trial size 9 femoral component was then placed and was fully seated. There was good anterior to posterior and medial to lateral fit. The distal peg holes were then drilled. The trial component was then removed. Attention was then paid towards preparing the proximal tibia. An extra medullary guide was utilized in line with the tibial shaft and second metatarsal distally. A 7 posterior slope was planned. I planned on 2 mm resection from the medial compartment. The cutting block was pinned in place. The proximal tibial cut was then made. The bone was removed in one fragment. The remnants of the medial and lateral menisci were excised the capsule junction with electrocautery. The tibia sized most appropriately at size 8. The posterior osteophytes off the distal femur were carefully removed with a curved osteotome. The trial tibial and femoral components were placed along with a 9 millimeters articular surface. I was able to obtain full flexion and extension with good stability with varus and valgus stress. After several flexion and extension cycles, the tibial rotation was marked with electrocautery in line with the medial one third of the tibial tubercle. Attention was then paid towards preparing the patella. A patella reamer was utilized taking this down to 14 mm of bone stock. A good flush cut was made. The patella sized most appropriately at 41 millimeters. The peg holes were then drilled. The trial component was placed. The knee was taken through a range of motion. I had good patellofemoral tracking with no hands technique. The trial components were then removed. The tibia was prepared in the appropriate rotation with appropriate drill and keel punch. The flexion and extension gaps were checked and felt to be symmetric. The bony surfaces were prepared with pulsatile lavage and dried. The deep tibial component was then cemented in place and was fully seated. Excess cement was removed. The femoral component was cemented in place and was fully seated. Again excess cement was removed. The trial 9 millimeters surface was then inserted in the knee was put in full extension. The patella component was cemented in place. After the cement had sufficiently hardened, the knee was again taken through a range of motion. Again there was good stability in flexion and extension with varus and valgus stress. The trial articular surface was then removed. The final articular surface was placed and was impacted. Care was taken to avoid any soft tissue interposition. Pulsatile lavage was again utilized. The tourniquet was deflated with approximately 60 minutes total tourniquet time. There was minimal drainage therefore a deep drain was not placed. The medial parapatellar arthrotomy was then closed with #2 Ethibond suture. The subcutaneous tissues were reapproximated interrupted 2- 0 Vicryl sutures. The skin was reapproximated with 3-0 subarticular strata fix suture. Skin tape and adhesive was applied. A sterile dressing was applied. The patient was then awoken from sedation and transferred to recovery room in good condition. Blood loss was estimated at 50 milliliters. No complications were incurred. Sponge and needle counts were correct at the end the case. Eliazar DOLAN assisted during the major components this case to include exposure, bone resection, and implantation.
[2024-02-10] MEDS: ROPIVACAINE 1,100 MG, SODIUM CHLORIDE 0.9% 500 ML 330 ML, EMPTY PAIN BALL 1 EACH MISCELLANE PRN (09:50)
--- NOTE | 2024-02-10 10:09 | XR ---
EXAMINATION TYPE: XR knee limited LT DATE OF EXAM: 02/10/2024 10:04 AM COMPARISON: None CLINICAL INDICATION: Male, 84 years old with history of Evaluation for Postop abnormality and alignme nt; TECHNIQUE: XR knee limited LT views submitted.. FINDINGS: Status post total knee arthroplasty changes with hardware in appropriate alignment and in tact. No evidence of fracture. Subcutaneous lucencies and lucencies within the joint consistent with surgical changes. IMPRESSION: Status post total knee arthroplasty changes with hardware intact and appropriate alignment. No fractu res identified. [facility], , 02/10/2024 10:07 AM
[2024-02-10 11:49] LABS: Glucose,Whole Blood 161 mg/dL (70-110)
[2024-02-10] MEDS: HYDROcodone/APAP 7.5-325MG 1 EACH TAB PO PRN (12:20)
[2024-02-10] MEDS: METOPROLOL TARTRATE 12.5 MG TAB PO SCH (14:49)
[2024-02-10] MEDS: FENOFIBRATE 54 MG TAB PO SCH (16:07)
[2024-02-10] MEDS: PROPAFENONE 150 MG TAB PO SCH (16:07)
[2024-02-10] MEDS: hydrOXYzine pamoate 25 MG CAP PO PRN (16:10)
[2024-02-10 16:32] LABS: Glucose,Whole Blood 378 mg/dL (70-110)
[2024-02-10] MEDS: WARFARIN 7.5 MG TAB PO ONE (17:14)
[2024-02-10 20:14] LABS: Glucose,Whole Blood 402 mg/dL (70-110)
[2024-02-10] MEDS ORDERED: DEXTROSE 50% SYRINGE 50 ML IVP PRN ×2 (20:53)
[2024-02-10] MEDS: INSULIN ASPART (NovoLOG) 100 UNIT/ML VIAL SQ SCH (21:07)
[2024-02-10] MEDS: ATORVASTATIN 40 MG TAB PO SCH (21:08)
[2024-02-10] MEDS: SENNOSIDES-DOCUSATE SODIUM 1 EACH TAB PO SCH (21:08)
--- NOTE | 2024-02-11 02:11 | CONS ---
CONSULTATION REASON FOR CONSULTATION: Advice regarding diabetes mellitus and other medical issues, requested by Orthopedics. HISTORY OF PRESENT ILLNESS: This 84-year-old gentleman, with a past medical history of multiple medical problems including atrial fibrillation, diabetes mellitus, and other medical issues, who underwent left total knee arthroplasty. There is no history of fever, rigors. No history of headache, loss of consciousness, or seizures. PAST MEDICAL HISTORY: Reviewed and includes atrial fibrillation, diabetes mellitus. Rest of the chart is also reviewed. MEDICATIONS: Rythmol. Dose and rest of medications reviewed. ALLERGIES: Norflex. FAMILY HISTORY: History of cancer. SOCIAL HISTORY: Previous history of smoking. REVIEW OF SYSTEMS: Fourteen-point review is negative as mentioned. PHYSICAL EXAMINATION: VITAL SIGNS: Pulse 67, blood pressure 113/66, respirations 18. HEENT: Conjunctivae normal. NECK: No JVD. CARDIOVASCULAR: S1, S2. RESPIRATIONS: Breath sounds diminished at the bases. ABDOMEN: Soft. LEGS: Status post surgery. NERVOUS SYSTEM: Nonfocal. SKIN: As mentioned earlier. LABORATORY DATA: Glucose 161. ASSESSMENT: 1. Status post left total knee arthroplasty. 2. Coronary artery disease. 3. Diabetes mellitus, type 2. 4. Hypertension. 5. Hyperlipidemia. 6. History of atrial fibrillation. RECOMMENDATIONS AND DISCUSSION: I recommend to continue current medications. Continue symptomatic treatment. Resume the home medications. The patient is improving significantly. We will recommend a close followup with primary physician after discharge. We will follow the patient closely with you. MARIANNE / CHANTALEN: [phone] /
[2024-02-11 03:05] LABS: Glucose,Whole Blood 205 mg/dL (70-110)
[2024-02-11 03:33] LABS: INR 1.2 (<1.2)
[2024-02-11 03:34] LABS: Prothrombin Time 12.3 sec (10.0-12.5)
--- NOTE | 2024-02-11 06:02 | P.PN ---
Progress Note - Text Adequate analgesia. No anesthetic complications.
[2024-02-11 06:40] LABS: Glucose,Whole Blood 190 mg/dL (70-110)
[2024-02-11] MEDS: HYDROcodone/APAP 5-325MG 1 EACH TAB PO PRN (06:56)
[2024-02-11] MEDS: DAPAGLIFLOZIN PROPANEDIOL 5 MG TABLET PO SCH (08:13)
[2024-02-11] MEDS: MULTIVITAMINS, THERA 1 EACH TAB PO SCH (08:13)
[2024-02-11 08:29] LABS: Basophils # (A) 0.01 X 10*3/uL (0.00-0.10); Basophils % (A) 0.1 %; Eosinophils # (A) 0.01 X 10*3/uL (0.04-0.35); Eosinophils % (A) 0.1 %; HCT 39.7 % (39.6-50.0); HGB 12.6 g/dL (13.0-17.0); Lymphocytes # (A) 0.82 X 10*3/uL (0.90-5.00); Lymphocytes % (A) 5.9 %; MCH 29.3 pg (27.0-32.0); MCHC 31.7 g/dL (32.0-37.0); MCV 92.3 FL (80.0-97.0); Mean Platelet Volume 10.8 FL (9.5-12.2); Monocytes # (A) 1.19 X 10*3/uL (0.20-1.00); Monocytes % (A) 8.6 %; NRBC Per 100 WBC 0 X 10*3/uL (0.00-0.01); Neutrophils # (A) 11.75 X 10*3/uL (1.80-7.70); Neutrophils % (A) 84.6 %; Platelet Count 178 X 10*3/uL (140-440); RDW 13.6 % (11.5-14.5); WBC 13.88 X 10*3/uL (4.50-10.00)
[2024-02-11 08:37] LABS: BUN/Creat Ratio 16.41 Ratio (12.00-20.00); Blood Urea Nitrogen 47.6 mg/dL (9.0-27.0); Calcium 8.3 mg/dL (8.7-10.3); Carbon Dioxide 16.3 mmol/L (21.6-31.8); Chloride 109 mmol/L (96-109); Glucose 248 mg/dL (70-110); Potassium 4.3 mmol/L (3.5-5.5); Sodium 136 mmol/L (135-145)
[2024-02-11] MEDS: HEPARIN SODIUM,PORCINE 5,000 UNIT/ML 1 ML VIAL SQ SCH (10:37)
--- NOTE | 2024-02-11 10:37 | P.PN ---
Subjective Progress Note Date: 02/11/24 Principal diagnosis: Status post left total knee arthroplasty Patient evaluated today at bedside, he is resting in his hospital chair. Patient did very well with physical therapy and doing stairs. His pain is controlled with current medications. Patient denies any headaches, lightheadedness, chest pain or shortness of breath. Objective - Vital Signs Vital signs: Vital Signs Temp 97.7 F 02/11/24 07:18 Pulse 56 L 02/11/24 07:18 Resp 18 02/11/24 07:18 BP 107/57 02/11/24 07:18 Pulse Ox 97 02/11/24 07:18 FiO2 Intake & Output 02/10/24 02/11/24 02/11/24 18:59 06:59 18:59 Intake Total 1476 540 Output Total 925 2075 425 Balance 551 -1535 -425 Weight 84.2 kg Intake: IV 1251 Oral 225 540 Output: Urine 875 2075 425 Estimated Blood Loss 50 Other: Voiding Method Ileal Conduit (Right) - Exam Left lower extremity: Incision is clean, dry, and intact. The exofin fusion tape is in good c ondition. There is minimal soft tissue swelling and ecchymosis surrounding the medial and lateral aspects of the incision. Calf is soft, no tenderness with palpation. Plantar flexion, dorsiflexion, EHL, FHL are intact. Sensory exam to light touch throughout the extremity is intact, dorsal pedis pulses 2+. - Labs CBC & Chem 7: 02/11/24 02:50 02/11/24 02:50 Labs: Abnormal Lab Results - Last 24 Hours (Table) 02/10/24 02/10/24 02/10/24 Range/Units 11:47 16:30 20:12 WBC (4.50-10.00) X 10*3/uL RBC (4.40-5.60) X 10*6/uL Hgb (13.0-17.0) g/dL MCHC (32.0-37.0) g/dL Immature Gran # (0.00-0.04) X 10*3/uL Neutrophils # (1.80-7.70) X 10*3/uL Lymphocytes # (0.90-5.00) X 10*3/uL Monocytes # (0.20-1.00) X 10*3/uL Eosinophils # (0.04-0.35) X 10*3/uL INR (<1.2) Carbon Dioxide (21.6-31.8) mmol/L BUN (9.0-27.0) mg/dL Creatinine (0.6-1.5) mg/dL Est GFR (CKD-EPI) (>=60) Glucose (70-110) mg/dL POC Glucose (mg/dL) 161 H 378 H 402 H (70-110) mg/dL Hemoglobin A1c (<=6.0) % Calcium (8.7-10.3) mg/dL 02/11/24 02/11/24 02/11/24 Range/Units 02:50 02:50 02:50 WBC (4.50-10.00) X 10*3/uL RBC (4.40-5.60) X 10*6/uL Hgb (13.0-17.0) g/dL MCHC (32.0-37.0) g/dL Immature Gran # (0.00-0.04) X 10*3/uL Neutrophils # (1.80-7.70) X 10*3/uL Lymphocytes # (0.90-5.00) X 10*3/uL Monocytes # (0.20-1.00) X 10*3/uL Eosinophils # (0.04-0.35) X 10*3/uL INR 1.2 H (<1.2) Carbon Dioxide 16.3 L (21.6-31.8) mmol/L BUN 47.6 H (9.0-27.0) mg/dL Creatinine 2.9 H (0.6-1.5) mg/dL Est GFR (CKD-EPI) 21 L (>=60) Glucose 248 H (70-110) mg/dL POC Glucose (mg/dL) (70-110) mg/dL Hemoglobin A1c 7.6 H (<=6.0) % Calcium 8.3 L (8.7-10.3) mg/dL 02/11/24 02/11/24 02/11/24 Range/Units 02:50 03:03 06:33 WBC 13.88 H (4.50-10.00) X 10*3/uL RBC 4.30 L (4.40-5.60) X 10*6/uL Hgb 12.6 L (13.0-17.0) g/dL MCHC 31.7 L (32.0-37.0) g/dL Immature Gran # 0.10 H (0.00-0.04) X 10*3/uL Neutrophils # 11.75 H (1.80-7.70) X 10*3/uL Lymphocytes # 0.82 L (0.90-5.00) X 10*3/uL Monocytes # 1.19 H (0.20-1.00) X 10*3/uL Eosinophils # 0.01 L (0.04-0.35) X 10*3/uL INR (<1.2) Carbon Dioxide (21.6-31.8) mmol/L BUN (9.0-27.0) mg/dL Creatinine (0.6-1.5) mg/dL Est GFR (CKD-EPI) (>=60) Glucose (70-110) mg/dL POC Glucose (mg/dL) 205 H 190 H (70-110) mg/dL Hemoglobin A1c (<=6.0) % Calcium (8.7-10.3) mg/dL Assessment and Plan Assessment: Postoperative day #1 status post left total knee arthroplasty Plan: Pain control, plan for discharge home on [place] and stool softeners DVT prophylaxis, patient will resume his normally prescribed Coumadin at discharge. He will receive a dose of heparin today while in hospital Wound care instructions discussed, this to include bandaging, icing and elevating, and showering instructions Home PT/nursing after discharge medical recommendations appreciated Discharge planning: Patient stable for discharge home today Time with Patient: Less than 30
--- NOTE | 2024-02-11 10:45 | P.DS ---
Providers Date of admission: 02/10/2024 Expected date of discharge: 02/11/24 Attending physician: Russel Villanueva Consults: 02/10/24 09:24 Consult Physician Routine Consulting Provider: Sonia Arzola Consult Reason/Comments: Medical Management s/p left total knee arthroplasty Do you want consulting provider notified?: Yes Primary care physician: Nixon Tavares [place] Hospital Course: Date of admission: 02/10/2024 Date of discharge: 02/11/2024 Admission diagnosis: Status post left total knee arthroplasty Discharge diagnosis: Same Attending physician: Dr. Villanueva Surgical procedures: Left total knee arthroplasty Brief history: Patient is a 84-year-old male with a history of progressive primary left knee osteoarthritis. At this point patient has failed conservative treatment measures and has opted to proceed with a elective left total knee arthroplasty. Hospital course: Details of patient's surgery can be found in operative report. Patient tolerated the procedure well and was subsequently transported to orthopedic floor. Patient's orthopeidc and medical care was provided daily. Patient had daily laboratory tests performed for evaluation of overall blood counts. Patient had daily physical therapy to include strengthening range of motion as well as education with walker ambulation. Patient was treated with heparin and Coumadin for their postoperative DVT prophylaxis during their inpatient stay. Patient was noted to have a relatively uneventful postoperative course. Patient reported satisfactory pain control with oral pain medications by postoperative day 0. Patient showed satisfactory progress with physical therapy. Patient moved steadily through the program and had no difficulty meeting the goals by postoperative day 1. Given patient's otherwise satisfa ctory course and having met physical therapy goals, plan is to discharge patient home on postoperative day 1. Discharge condition/disposition: Patient will be discharged home in stable condition. Discharge medications: Instructions are given on resumption of patient's normal daily medications per primary care recommendation, in addition patient will be prescribed [place] 5 mg / 325 mg, senna S. Discharge instructions: 1. Wound care and infection precautions, keep incision dry and covered while showering, no lotions, creams, moisturizers. No soaking, tubs, pools, hottubs. Do not scrub over the incision. 2. Weight-bear as tolerated with walker / cane until follow-up. 3. Ice and elevate when necessary. Do not exceed 20 minutes per hour with ice pack. 4. Utilize compression sleeve until seen at first follow up appointment. 5. Visiting nursing care. 6. Home physical therapy including home CPM. 7. Pain meds and anticoagulants per prescription. 8. Pain medication has potential to cause constipation. Increase oral fluid and fiber intake. Contact primary care provider if you have not had a bowel movement within 48 hours after discharge 9. No anti-inflammatory medication until discussed at first post operative visit, this including Motrin, Aleve, Mobic, Diclofenac. 10. Follow up in office at 2 weeks postop with Augie Tobias PA-C/Eliazar Murcia 11. Follow up with your primary care doctor 7-10 days after discharge. 12. Contact [facility] with any questions, . Procedures: Left total knee arthroplasty Patient Condition at Discharge: Good Plan - Discharge Summary Discharge Rx Participant: Yes New Discharge Prescriptions: New HYDROcodone/APAP 5-325MG [[place] 5-325] 1 tab PO Q4HR PRN #42 tab PRN Reason: Pain Sennosides/Docusate Sodium [Senna-S 8.6-50 mg Tablet] 1 each PO DAILY PRN #21 tablet PRN Reason: Constipation No Action Propafenone [Rythmol] 150 mg PO TID Metoprolol Tartrate 12.5 mg PO QAM Atorvastatin [Lipitor] 40 mg PO HS Warfarin [Coumadin] 2.5 mg PO SUTUTH Fenofibrate 54 mg PO TID Multivitamins, Thera [Multivitamin (formulary)] 1 tab PO DAILY Warfarin [Coumadin] 3.75 mg PO SUMOWEFR Empagliflozin [Jardiance] 10 mg PO DAILY Discharge Medication List Atorvastatin [Lipitor] 40 mg PO HS 02/20/16 [History] Metoprolol Tartrate 12.5 mg PO QAM 02/20/16 [History] Propafenone [Rythmol] 150 mg PO TID 02/20/16 [History] Warfarin [Coumadin] 2.5 mg PO SUTUTH 10/22/16 [History] Empagliflozin [Jardiance] 10 mg PO DAILY 02/05/24 [History] Fenofibrate 54 mg PO TID 02/05/24 [History] Multivitamins, Thera [Multivitamin (formulary)] 1 tab PO DAILY 02/05/24 [History] Warfarin [Coumadin] 3.75 mg PO SUMOWEFR 02/05/24 [History] HYDROcodone/APAP 5-325MG [[place] 5-325] 1 tab PO Q4HR PRN #42 tab 02/11/24 [Rx] Sennosides/Docusate Sodium [Senna-S 8.6-50 mg Tablet] 1 each PO DAILY PRN #21 tablet 02/11/24 [Rx] Follow up Appointment(s)/Referral(s): Eliazar Raman, PAC [PHYSICIAN RN DIABETES EDUCATOR] - 2 Weeks [facility],Equipment [NON-STAFF] - As Needed (Continuous Passive Motion knee machine) [facility] Visiting Nurse, [NON-STAFF] - As Needed Patient Instructions/Handouts: Knee Replacement (GEN) Activity/Diet/Wound Care/Special Instructions: Orthopedic Discharge Instructions: 1. Wound care and infection precautions, keep incision dry and covered while showering, no lotions, creams, moisturizers. No soaking, pools, hot tubs. Do not scrub over incision. 2. Weight-bear as tolerated with walker / cane until follow-up. 3. Ice and elevate when necessary. Do not exceed 20 minutes per hour with ice pack. 4. Utilize compression sleeve until seen at first follow up appointment. 5. Pain meds and anticoagulants per prescription. 6. Pain medication has potential to cause constipation. Increase oral fluid and fiber intake. Contact primary care provider if you have not had a bowel movement within 48 hours after discharge. 7. No anti-inflammatory medication until discussed at first post operative visit, this including Motrin, Aleve, Mobic, Diclofenac. 8. Follow up in office at 2 weeks postop with Augie Tobias PA-C / Eliazar Raman PA-C 9. Follow up with your primary care doctor 7-10 days after discharge. 10. Contact [facility] with any questions, . Keep incision clean, dry, intact. While showering, cover incision with Saran wrap. Keep fusion tape on until follow-up appointment office in 2 weeks Discharge Disposition: HOME WITH HOME HEALTH SERVICES
[2024-02-11 11:32] LABS: Glucose,Whole Blood 221 mg/dL (70-110)
[2024-02-11 13:41] VITALS: BP 117/56; PULSE 65; RESP 17; TEMP 97.4
[2024-02-11] MEDS ORDERED: WARFARIN 7.5 MG TAB PO ONE (18:00)
--- NOTE | 2024-02-12 02:21 | PN ---
PROGRESS NOTE DATE OF SERVICE: 02/11/2024 SUBJECTIVE: This is an 84-year-old gentleman who was admitted after left total knee arthroplasty, is improving significantly. No chest pain. No palpitations. No fever. OBJECTIVE: VITAL SIGNS: Pulse is 65, blood pressure 117/53, respirations 17. CHEST: Clear to auscultation. CARDIOVASCULAR: S1, S2. ABDOMEN: Soft. KNEES: Status post surgery. LABORATORY DATA: Reviewed. Creatinine is 2.9. ASSESSMENT: 1. Status post left total knee arthroplasty. 2. Coronary artery disease. 3. Chronic kidney disease, stage 3. 4. Diabetes mellitus type 2. 5. Hypertension. 6. Hyperlipidemia. 7. History of atrial fibrillation. RECOMMENDATIONS: Recommend to continue current management and continue symptomatic treatment. Otherwise, the patient is medically stable. I recommend close followup with primary physician regarding the abnormal labs to be repeated. Otherwise, resume the home medications and continue to follow with Nephrology as an outpatient. DVT prophylaxis per Orthopedic Surgery. Further recommendations to follow. MMODL / IJN: [id number] /
== END 2024-02-11 13:31 | disposition home health service (06) ==
LOC: OR 05:35 → 4SSUR 09:32 → OR 02-11 13:31
PROVIDERS: ATTEND Orthopaedic Surgery
DX: M17.12 Unilateral primary osteoarthritis, left knee (principal); G89.18 Other acute postprocedural pain; I48.0 Paroxysmal atrial fibrillation; E11.22 Type 2 diabetes mellitus with diabetic chronic kidney disease; I12.9 Hypertensive chronic kidney disease with stage 1 through stage 4 chronic kidney disease, or unspecified chronic kidney disease; N18.4 Chronic kidney disease, stage 4 (severe); I25.10 Atherosclerotic heart disease of native coronary artery without angina pectoris; Z95.1 Presence of aortocoronary bypass graft; E78.5 Hyperlipidemia, unspecified; I35.0 Nonrheumatic aortic (valve) stenosis; Z79.01 Long term (current) use of anticoagulants; Z79.84 Long term (current) use of oral hypoglycemic drugs; Z79.899 Other long term (current) drug therapy; Z87.891 Personal history of nicotine dependence; Z85.46 Personal history of malignant neoplasm of prostate; Z85.72 Personal history of non-Hodgkin lymphomas; Z96.641 Presence of right artificial hip joint; Z93.3 Colostomy status; Z93.6 Other artificial openings of urinary tract status; Z88.5 Allergy status to narcotic agent
CPT/HCPCS: 27447; 97161; 64999; 64448; 80048; 85025; 85610 ×2; 83036; 73560; C1713 ×2; C1776; C1751; J2250; J1644; J1100; J0690 ×2; J2405; J3010; J2795; J2704

== ENCOUNTER 2024-04-27 08:14 | Day surgery (SDC) | payer MEDICARE ==
--- NOTE | 2024-04-26 08:25 | P.HPOR ---
History of Present Illness H&P Date: 04/26/24 Chief Complaint: Left knee stiffness The patient is an 84-year-old male who underwent left total knee arthroplasty 02/10/2024 presents with persistent stiffness despite adequate rehabilitation. He otherwise had an uncomplicated postoperative course. Review of Systems Per HPI Past Medical History Past Medical History: Atrial Fibrillation, Coronary Artery Disease (CAD), Cancer, Diabetes Mellitus, Hyperlipidemia, Hypertension, Osteoarthritis (OA), Renal Disease Additional Past Medical History / Comment(s): Basal cell carcinoma removed from left arm, Hx prostate cancer Dec 1997, had cryosurgery, had second cryosurgery due to cancer reoccurrence, then had prostatectomy May 2000. Hx skin cancer. Hx follicular lymphoma/tumor 2020, had chemo, completed Dec 2020. Chronic renal failure, stage 4, only one kidney functions normally, no dialysis. Has colostomy and urostomy. History of Any Multi-Drug Resistant Organisms: None Reported Past Surgical History: Bladder Surgery, Bowel Resection, Cholecystectomy, Coronary Bypass/CABG, Joint Replacement, Orthopedic Surgery, Prostate Surgery Additional Past Surgical History / Comment(s): Left knee arthroscopy, colostomy and urostomy 2004 at [facility] due to complications from prostatectomy, left shoulder and left wrist surgery, 5 vessel bypass, right hip replacement, bilateral cataract surgery, colonoscopies, polypectomies and tumor removed, Lt. TKA 02/21 Past Anesthesia/Blood Transfusion Reactions: No Reported Reaction Smoking Status: Former smoker - Past Family History Mother Family Medical History: Cancer Additional Family Medical History / Comment(s): Breast cancer. Brother(s) Family Medical History: Cancer Additional Family Medical History / Comment(s): Prostate cancer. Medications and Allergies Home Medications Medication Instructions Recorded Confirmed Type Atorvastatin [Lipitor] 40 mg PO HS 02/20/16 04/22/24 History Metoprolol Tartrate 12.5 mg PO QAM 02/20/16 04/22/24 History Propafenone [Rythmol] 150 mg PO BID 02/20/16 04/22/24 History Empagliflozin [Jardiance] 10 mg PO DAILY 02/05/24 04/22/24 History Fenofibrate 54 mg PO TID 02/05/24 04/22/24 History Multivitamins, Thera [Multivitamin 1 tab PO DAILY 02/05/24 04/22/24 History (formulary)] Warfarin [Coumadin] 1 tab PO MOFR 04/22/24 04/22/24 History Warfarin [Coumadin] 1.5 tab PO SUTUWETHSA 04/22/24 04/22/24 History Allergies Allergy/AdvReac Type Severity Reaction Status Date / Time orphenadrine [From Norflex] Allergy blurry Verified 04/22/24 15:48 vision Physical Examination - Knee left Previous incision location: Incision healing well, no warmth or erythema Tenderness with palpation: none Pain: no pain ROM: extension: -10 degrees ROM: flexion: 90 degrees Strength: extension: 5/5 Strength: flexion: 5/5 Results The patient is a well-developed well-nourished male approximately 6 foot tall, 192 pounds of mesomorphic habitus. HEENT exam is nonfocal, neck is supple. He has painless passive motion of the left hip. His previous incision over the left knee is healing well. He has no joint line tenderness. He has good patellofemoral tracking. Homans is negative. His distal neurovascular exam appears intact in the left lower extremity. - Diagnostic results Knee x-ray: image reviewed (X-rays of the left knee obtained the office show a total knee arthroplasty in good alignment.) Assessment and Plan Assessment: Status post left total knee arthroplasty with arthrofibrosis Plan: I talked to the patient at length regarding his condition along with treatment options. At this point he remains stiff despite adequate rehabilitation. After thorough discussion he opts to proceed with manipulation under anesthesia. Risks and benefits were discussed at length in layman's terms. We will likely perform this as an outpatient procedure utilizing IV sedation. We will reinstitute therapy after the procedure.
[~2024-04-27 08:14] MED LIST changes: +DEXAMETHASONE SOD PHOSPHATE 4 MG/ML 1 ML VIAL IV ONE; +LACTATED RINGERS 1,000 ML IV SCH; -TRANEXAMIC 1,000 MG/100ML-NACL 1,000 MG in SALINE 1 100ML.BAG IVPB PRN
[2024-04-27 08:58] LABS: Glucose,Whole Blood 144 mg/dL (70-110)
[2024-04-27] MEDS: SODIUM CHLORIDE 0.9% 1,000 ML IV ONE (09:01)
[2024-04-27] MEDS: ONDANSETRON 4 MG/2 ML VIAL IVP ONE (09:05)
[2024-04-27 09:30] VITALS: TEMP 97.2
[2024-04-27] MEDS ORDERED: LIDOCAINE 1% INJ 10MG/ML (20 ML MDV) ONE (09:37)
[2024-04-27] MEDS ORDERED: PROPOFOL 10 MG/ML 20 ML VIAL IV ONE (09:37)
--- NOTE | 2024-04-27 09:45 | P.OP ---
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 A discussion of the risks and benefits of manipulation under anesthesia was made with the patient. He opted to proceed. Risks of the procedure to include fracture, recurrence of stiffness, and possible need for subsequent procedures was discussed. Informed consent was obtained. Operative Findings: As below Description of Procedure: The patient was brought to the recovery room, and after induction of IV sedation I then gently manipulated his left knee. I was able to obtain 120 degrees of flexion. Moderate adhesions were encountered. I was also able to obtain -5 degrees of full extension. He was then monitored until fully awake. There was no blood loss. There were no complications.
[2024-04-27] MEDS: HYDROmorphone 0.5 MG/0.5 ML SYRINGE IVP PRN (10:07)
[2024-04-27 10:26] VITALS: RESP 16
[2024-04-27 10:51] VITALS: BP 147/74; PULSE 59
== END 2024-04-27 11:25 | disposition home or self-care (01) ==
LOC: OR 08:14
PROVIDERS: ATTEND Orthopaedic Surgery
DX: M24.662 Ankylosis, left knee (principal); I48.91 Unspecified atrial fibrillation; I25.10 Atherosclerotic heart disease of native coronary artery without angina pectoris; E11.22 Type 2 diabetes mellitus with diabetic chronic kidney disease; I12.9 Hypertensive chronic kidney disease with stage 1 through stage 4 chronic kidney disease, or unspecified chronic kidney disease; N18.4 Chronic kidney disease, stage 4 (severe); E78.5 Hyperlipidemia, unspecified; M19.90 Unspecified osteoarthritis, unspecified site; Z96.653 Presence of artificial knee joint, bilateral; Z87.891 Personal history of nicotine dependence; Z79.84 Long term (current) use of oral hypoglycemic drugs
CPT/HCPCS: 27570; J2405; J2003; J2704; J1171